=== PATIENT | female | born 1980 | race Caucasian/White ===

== ENCOUNTER → 2018-04-01 | Outpatient (REF) ==
[~2018-04-01] MED LIST: CARB-82; CETI10CA8 PO; CIP500 PO; CYCL-343 PO; DIA5 PO; HYDR-385 PO; HYDR-4240 PO; IOPAMIDOL 76% 50 ML INFUS BTL 100 ML ONE; KETO-104 PO; NO ROUTINE MEDS; PER PO; PHEN100 PO
--- NOTE | 2018-04-01 11:08 | RADIOLOGY IMAGING REPORT ---
FACILITY: [facility] PATIENT NAME: Maura Santoyo : 1980 MR: [id number] V: [id number] EXAM DATE: ORDERING PHYSICIAN: ALEX HAINES TECHNOLOGIST: Location: [facility] Patient: Maura Santoyo : 1980 Visit/Account:[id number] Date of Sevice: 04/01/2018 EXAMINATION: CT abdomen without IV contrast CT abdomen with IV contrast CT pelvis without IV contrast CT pelvis with IV contrast HISTORY: Right flank pain. Family history of polycystic kidney disease. COMPARISON: None. TECHNIQUE: Axial images were taken through the abdomen and pelvis without and with intravenous contr ast. Sagittal and coronal reformatted images are also submitted. CONTRAST: 75 mL of IV [id number]-[id number]. One of the following dose optimization techniques was utilized in the performance of this exam: Autom ated exposure control; adjustment of the mA and/or kV according to the patient's size; or use of an i terative reconstruction technique. Specific details can be referenced in the facility's radiology C T exam operational policy. FINDINGS: Liver/biliary: 5 mm sharply defined hypodensity at the dome (image 29 series 6). Liver is otherwise homogeneous. No biliary ductal dilatation. Pancreas: Negative. Spleen: Negative. Adrenal glands: Negative. Kidneys: There are no renal or ureteral stones. No hydronephrosis. Kidneys are normal in size and a xis with symmetric bilateral nephrograms. No focal renal lesion. Pelvic structures: Small nabothian cysts in the cervix. 1.5 cm collapsing hemorrhagic cyst of the left ovary. Bowel: Negative. Peritoneum/retroperitoneum/mesenteries: Trace free fluid in the cul-de-sac. Vessels: Negative. Musculoskeletal/body wall: Negative. Lymph nodes: Negative. Lower chest: Negative. IMPRESSION: 1. No explanation for flank pain. No renal stones, hydronephrosis or renal masses. 2. 5 mm liver lesion is statistically likely a benign cyst or hemangioma. 3. 1.5 cm collapsing hemorrhagic cyst of the left ovary with trace free fluid in the cul-de-sac. Report Dictated By: Ayana Chopra MD at 04/01/2018 10:51 AM Report E-Signed By: Ayana Chopra MD at 04/01/2018 11:03 AM WSN:[id number]
== END ==
LOC: CT 01:15
PROVIDERS: ATTEND Nurse Practitioner
DX: N83.292 Other ovarian cyst, left side (principal)
CPT/HCPCS: 74178; Q9967